=== PATIENT | female | born 1960 | race Caucasian/White ===

== ENCOUNTER → 2017-11-04 | Outpatient (CLI) | payer BC ==
[~2017-11-04] MED LIST: HYDROCHLOROTH12.5 M3 PO; MOTRIN600 MG PO; PERCOCET 5/31 TABLET PO; PRILOSEC40 MG PO; ZESTRIL20 MG PO
== END | disposition home or self-care (01) ==
LOC: CDC 09:00
DX: Z01.810 Encounter for preprocedural cardiovascular examination (principal); M48.02 Spinal stenosis, cervical region; R94.31 Abnormal electrocardiogram [ECG] [EKG]
CPT/HCPCS: 93000